=== PATIENT | male | born 1960 | race Hispanic/Latino ===

== ENCOUNTER 2017-01-03 08:42 | Emergency (ER) | payer OTHER ==
[2017-01-03 09:20] LABS: Eosinophils % (Auto) 0.8 % (0.0-4.3); Hematocrit 45.1 % (35.5-45.6); Hemoglobin 15.5 gm/dl (11.8-15.2); Mean Corpuscular HGB Conc 34 % (32-34); Mean Corpuscular Hemoglobin 31 pg (28-32); Mean Corpuscular Volume 91 fl (84-94); Platelet Count 170 K/mm3 (140-440); Red Blood Count 4.95 M/mm3 (3.65-5.03); Red Cell Distribution Width 12.9 % (13.2-15.2); White Blood Count 10.6 K/mm3 (4.5-11.0)
[2017-01-03 09:27] LABS: Alanine Aminotransferase 45 units/L (7-56); Albumin 4.5 g/dL (3.9-5); Albumin/Globulin Ratio 1.7 %; Alkaline Phosphatase 110 units/L (35-129); Anion Gap 18 mmol/L; BUN/Creatinine Ratio 14.54; Bilirubin,Total 0.4 mg/dL (0.1-1.2); Blood Urea Nitrogen 16 mg/dL (9-20); Calcium 9.3 mg/dL (8.4-10.2); Carbon Dioxide 27 mmol/L (22-30); Chloride 101.7 mmol/L (98-107); Glucose 154 mg/dL (75-100); Lipase 28 units/L (13-60); Potassium 4.9 mmol/L (3.6-5.0); Sodium 142 mmol/L (137-145); Total Protein 7.2 g/dL (6.3-8.2)
[2017-01-03 09:31] LABS: Bilirubin,Urine NEG (Negative); Blood,Urine SM (Negative); Ketones,Urine NEG (Negative); Leukocyte Esterase,Urine NEG (Negative); Mucus,Urine FEW /HPF; Nitrite,Urine NEG (Negative); Protein,Urine <15 mg/dL mg/dL (Negative); Urobilinogen,Urine < 2.0 mg/dL (<2.0)
[2017-01-03] MEDS ORDERED: MORPHINE IV ONE ×2 (10:29→11:32)
[2017-01-03] MEDS ORDERED: ZOFRAN IV ONE (10:29)
--- NOTE | 2017-01-03 11:32 | Cat Scan Report ---
CT SCAN OF THE ABDOMEN AND PELVIS WITH CONTRAST: HISTORY: Left lower quadrant abdominal pain. TECHNIQUE: Helical CT in 1.25mm intervals following IV contrast. Sagittal and coronal reconstructions. FINDINGS: The a 4.9 mm calculus is identified in the distal left ureter 2 cm from the left UVJ. There is mild left hydronephrosis and left perinephric stranding. No other renal stones are appreciated. There is apparent normal perfusion to left kidney but severe delay in excretion of contrast into the left collecting system. The right kidney and collecting system are unremarkable. Normal bladder and prostate gland. The liver is normal in size and is without focal defect. No gallstones or biliary dilatation are noted. Cholecystectomy has been performed. The spleen and pancreas demonstrate a normal size and attenuation with no evidence of abnormal mass. The adrenal glands are normal. There is no intestinal obstruction or ascites. The appendix is not confidently identified, correlate with surgical history. The abdominal aorta is normal. No abnormalities are identified within the retroperitoneum or mesentery. There is no evidence of peritoneal air or fluid. There is no evidence of any abnormal masses or fluid collections within the pelvis. No adenopathy is identified. The bladder is normal. IMPRESSION: 4.9 mm distal left ureteral stone, obstructing.
[2017-01-03] MEDS ORDERED: TORADOL IV ONE (11:49)
--- NOTE | 2017-01-03 12:45 | Emergency Department Report ---
ED Abdominal Pain HPI - General Chief Complaint: Abdominal Pain Stated Complaint: ABD PAIN Time Seen by Provider: 01/03/17 10:23 Source: patient Mode of arrival: Ambulatory Limitations: No Limitations - History of Present Illness Initial Comments: 56-year-old male presents to the emergency department complaining of abdominal pain. Patient states that he awoke this morning at approximately 5:30 AM with left lower quadrant abdominal pain. Pain is described as a squeezing, pulling sensation. Pain has been constant and does not radiate. He reports mild associated nausea with dry heaves. He denies vomiting or fever. There are no other complaints. MD Complaint: abdominal pain -: Sudden, This morning Time: 05:30 Location: LLQ Radiation: none Migration to: no migration Severity scale (0 -10): 8 Quality: other (squeezing, pulling) Consistency: constant Improves With: nothing Worsens With: nothing Associated Symptoms: nausea - Related Data Home Medications Medication Instructions Recorded Confirmed Last Taken Amitriptyline [Elavil] 25 mg PO QHS 01/03/17 01/03/17 01/02/17 Cetirizine HCl [ZyrTEC] 10 mg PO DAILY 01/03/17 01/03/17 01/03/17 Gabapentin [Neurontin] 300 mg PO HS 01/03/17 01/03/17 01/02/17 Ranitidine HCl [Zantac 150 MG TAB] 150 mg PO PRN PRN 01/03/17 01/03/17 01/03/17 Previous Rx's Medication Instructions Recorded Last Taken Type Promethazine [Phenergan TAB] 25 mg PO Q6HR PRN #20 tab 01/03/17 Unknown Rx traMADol [Ultram] 50 mg PO Q6HR PRN #20 tablet 01/03/17 Unknown Rx Allergies Allergy/AdvReac Type Severity Reaction Status Date / Time No Known Allergies Allergy Unverified 01/03/17 08:49 ED Review of Systems ROS: Stated complaint: ABD PAIN Other details as noted in HPI Comment: All other systems reviewed and negative Gastrointestinal: abdominal pain, nausea ED Past Medical Hx - Past Medical History Previous Medical History?: Yes Hx GERD: Yes Hx Psychiatric Treatment: Yes (poor sleep, PTSD) - Surgical History Past Surgical History?: Yes Hx Cholecystectomy: Yes - Family History Family history: no significant - Social History Smoking Status: Current Every Day Smoker Substance Use Type: Alcohol, Marijuana - Medications Home Medications: Home Medications Medication Instructions Recorded Confirmed Last Taken Type Amitriptyline [Elavil] 25 mg PO QHS 01/03/17 01/03/17 01/02/17 History Cetirizine HCl [ZyrTEC] 10 mg PO DAILY 01/03/17 01/03/17 01/03/17 History Gabapentin [Neurontin] 300 mg PO HS 01/03/17 01/03/17 01/02/17 History Promethazine [Phenergan TAB] 25 mg PO Q6HR PRN #20 tab 01/03/17 Unknown Rx Ranitidine HCl [Zantac 150 MG TAB] 150 mg PO PRN PRN 01/03/17 01/03/17 01/03/17 History traMADol [Ultram] 50 mg PO Q6HR PRN #20 tablet 01/03/17 Unknown Rx ED Physical Exam - General Limitations: No Limitations General appearance: alert, in no apparent distress - Head Head exam: Present: atraumatic, normocephalic - Eye Eye exam: Present: normal appearance, PERRL, EOMI - ENT ENT exam: Present: normal exam, normal orophraynx, mucous membranes moist - Neck Neck exam: Present: normal inspection, full ROM. Absent: tenderness - Respiratory Respiratory exam: Present: normal lung sounds bilaterally. Absent: respiratory distress - Cardiovascular Cardiovascular Exam: Present: regular rate, normal rhythm, normal heart sounds - GI/Abdominal GI/Abdominal exam: Present: soft, tenderness (mild left lower quadrant tenderness to palpation), normal bowel sounds. Absent: distended, guarding, rebound - Extremities Exam Extremities exam: Present: normal inspection, full ROM. Absent: tenderness - Back Exam Back exam: Present: normal inspection, full ROM. Absent: tenderness - Neurological Exam Neurological exam: Present: alert, oriented X3. Absent: motor sensory deficit - Skin Skin exam: Present: warm, dry, intact ED Course Vital Signs 01/03/17 01/03/17 01/03/17 08:46 09:16 09:34 Temperature 98.2 F Pulse Rate 72 74 Respiratory 20 20 18 Rate Blood Pressure 172/101 Blood Pressure 175/98 [Left] O2 Sat by Pulse 98 98 97 Oximetry 01/03/17 11:38 Temperature Pulse Rate 76 Respiratory 18 Rate Blood Pressure Blood Pressure 146/89 [Left] O2 Sat by Pulse 97 Oximetry ED Medical Decision Making - Lab Data Result diagrams: 01/03/17 08:54 01/03/17 08:54 - Radiology Data Radiology results: report reviewed, image reviewed CT of abdomen and pelvis reveals a 4.9 mm left ureteral stone approximately 2 cm proximal to the UVJ. There is mild hydronephrosis and perinephric stranding. - Medical Decision Making Lab and imaging results reviewed and discussed with the patient. Patient reports feeling better following medication. Patient will be discharged home at this time to follow up with urology. - Differential Diagnosis diverticulitis, diverticulosis, abdominal pain, kidney stone Critical care attestation.: If time is entered above; I have spent that time in minutes in the direct care of this critically ill patient, excluding procedure time. ED Disposition Clinical Impression: Ureterolithiasis Disposition: DISCHARGED TO HOME OR SELFCARE Is pt being admited?: No Condition: Stable Instructions: Kidney Stones (ED) Prescriptions: Promethazine [Phenergan TAB] 25 mg PO Q6HR PRN #20 tab PRN Reason: Nausea traMADol [Ultram] 50 mg PO Q6HR PRN #20 tablet PRN Reason: Pain Referrals: [facility] [Other] - 3-5 Days RAFIA MCNAMARA MD [Staff Physician] - 3-5 Days Time of Disposition: 12:55
[2017-01-03 13:48] VITALS: BP 134/86
== END 2017-01-03 13:47 | disposition home or self-care (01) ==
LOC: ED 08:42
DX: N20.1 Calculus of ureter (principal); K21.9 Gastro-esophageal reflux disease without esophagitis; F43.10 Post-traumatic stress disorder, unspecified; F17.200 Nicotine dependence, unspecified, uncomplicated; F12.90 Cannabis use, unspecified, uncomplicated
CPT/HCPCS: 36415; 74177; 80053; 81001; 83690; 85025; 96374; 96375; 96376; 99284; J1885; J2270; J2405; Q9967